=== PATIENT | male | born 1965 | race Two or more races ===

== ENCOUNTER 2019-02-26 05:22 | Day surgery (SDC) | payer OTHER ==
[~2019-02-26] VITALS: Ht 180.3 cm; Wt 90.3 kg
[2019-02-26] VITALS (10 sets, daily range): BP systolic 98–129; BP diastolic 53–86
[2019-02-26] MEDS ORDERED: Acetaminophen 500mg (ES) tab ORAL PRN (06:00)
[2019-02-26] MEDS ORDERED: Clindamycin 600mg/D5W 50ml IV ONE (06:00)
[2019-02-26] MEDS ORDERED: oxyCONTIN 20mg tab ORAL ONE (06:00)
[2019-02-26] MEDS ORDERED: celeBREX 200mg Cap **SURGERY PATIENTS ONLY ORAL ONE (06:00)
[2019-02-26] MEDS ORDERED: XANAX2 MG ORAL (06:15)
[2019-02-26] MEDS ORDERED: PRILOSEC OTC20 MG ORAL (06:15)
[2019-02-26] MEDS ORDERED: LEVOTHYROXINE125 MCG ORAL (06:15)
[2019-02-26] MEDS ORDERED: Bupivacaine w/Epi 0.5% 30ml Vial INJ ONE (06:30)
[2019-02-26] MEDS ORDERED: Zemuron 50mg/5ml Inj IV ONE (06:30)
[2019-02-26] MEDS ORDERED: fentaNYL 100 mcg/2 mL IV ONE ×2 (06:47→08:51)
[2019-02-26] MEDS ORDERED: Midazolam 2mg/2ml Inj ONE (06:48)
[2019-02-26] MEDS ORDERED: LR 1000ml ONE (07:00)
[2019-02-26] MEDS ORDERED: NS Irrig 4000ml IRRIG ONE (07:00)
[2019-02-26] MEDS ORDERED: Clindamycin 600mg 50 ML IV ONE (07:10)
--- NOTE | 2019-02-26 07:12 | Pre-Procedure Note/Attestation ---
Pre-Procedure Note/Attestation Complete Prior to Procedure Planned Procedure: right Procedure Narrative: shoulder Scope, labral repair, decompression of cyst, SAD Indications for Procedure Pre-Operative Diagnosis: Right shoulder labral tear Attestation I attest that I discussed the nature of the procedure; its benefits; risks and complications; and alternatives (and the risks and benefits of such alternatives ), prior to the procedure, with the patient (or the patient's legal office services representative). I attest that, if there was a reasonable possibility of needing a blood transfusion, the patient (or the patient's legal office services representative) was given the [facility] standardized written summary, pursuant to the [place] Blood Safety Act ([place] Health and Safety Code # 1645, as amended). I attest that I re-evaluated the patient just prior to the surgery and that there has been no change in the patient's H&P, except as documented below: Anderson Aguilera MD Feb 26, 2019 07:12
--- NOTE | 2019-02-26 07:49 | Anethesia Preoperative Eval ---
Anesthesia Pre-op PMH/ROS General Date of Evaluation: Feb 26, 2019 Time of Evaluation: 07:00 Anesthesiologist: tiana ASA Score: ASA 2 Mallampati Score Class I : Soft palate, uvula, fauces, pillars visible Class II: Soft palate, uvula, fauces visible Class III: Soft palate, base of uvula visible Class IV: Only hard plate visible Mallampati Classification: Class II Surgeon: Ale Diagnosis: shoulder pain Surgical Procedure: shoulder decompression Anesthesia History: none Social History: smoking, current smoker Family History: no anesthesia problems Allergies: Coded Allergies: PENICILLINS (Verified Allergy, Unknown, 02/26/19) HIVES Medications: see eMAR Patient NPO?: Yes NPO Date: Feb 26, 2019 NPO Time: 00:01 Past Medical History Cardiovascular: Denies: HTN, CAD, OR, valve dz, arrhythmia, other Pulmonary: Denies: asthma, COPD, KAREN, other Gastrointestinal/Genitourinary: Denies: GERD, CRI, ESRD, other Neurologic/Psychiatric: Denies: dementia, CVA, depression/anxiety, TIA, other Endocrine: Reports: hypothyroidism; Denies: DM, steroids, other HEENT: Denies: cataract (L), cataract (R), glaucoma, INAJA (L), INAJA (R), other Musculoskeletal/Integumentary: Denies: OA, RA, DJD, DDD, edema, other Other: obesity PSxH Narrative: gastric sleeve Anesthesia Pre-op Phys. Exam Physician Exam Last Vital Signs Date Time Temp Pulse Resp B/P (MAP) Pulse Ox O2 Delivery O2 Flow Rate FiO2 02/26/19 06:20 98.2 53 20 129/86 98 Room Air Constitutional: NAD Neurologic: CN 2-12 intact Cardiovascular: RRR Respiratory: CTA Gastrointestinal: S/NT/ND Airway Exam Mallampati Classification 2 Mallampati Score: Class II MO: full Neck: nomral ROM: full Dentures: no upper, no lower Anesthesia Pre-op A/P Studies Pre-op Studies: EKG - sr Risk Assessment & Plan Plan: Peripheral nerve block and General Status Change Before Surgery: No Pre-Antibiotics Drug: Cleocin Given Within 1 Hr of Incision: Yes Betty White CRNA Feb 26, 2019 07:49
[2019-02-26] MEDS ORDERED: Acetaminophen (Non formulary) 100 ML IV ONE (08:00)
[2019-02-26] MEDS ORDERED: fentaNYL 100 mcg/2 mL IV PRN (08:00)
[2019-02-26] MEDS ORDERED: Metoclopramide 10mg/2ml Inj IVP PRN (08:00)
[2019-02-26] MEDS ORDERED: Propofol 200mg/20ml IV ONE (08:01)
[2019-02-26] MEDS ORDERED: Lidocaine 1% MPF 10mg/ml 5ml ONE (08:48)
[2019-02-26] MEDS ORDERED: Neostigmine 1mg/ml 10ml Inj ONE (08:48)
[2019-02-26] MEDS ORDERED: Metoclopramide 10mg/2ml Inj ONE (08:48)
[2019-02-26] MEDS ORDERED: Glycopyrrolate 0.2mg/ml 1ml Vial ONE (08:48)
[2019-02-26] MEDS ORDERED: Ropivacaine 5mg/ml Vial 30ml INJ ONE (08:49)
--- NOTE | 2019-02-26 09:02 | Immediate Post-Op Evaluation ---
Immediate Post-Op Evalulation Immediate Post-Op Evalulation Procedure: right shoulder arthroscopy [place] Date of Evaluation: Feb 26, 2019 Time of Evaluation: 09:01 Nausea: No Vomiting: No Quoc Kelley MD Feb 26, 2019 09:01
--- NOTE | 2019-02-26 10:10 | 48 Hour Post Anesthesia Eval ---
Post Anesthesia Evaluation Procedure: right shoulder arthroscopy [place] Date of Evaluation: Feb 26, 2019 Time of Evaluation: 10:10 Nausea: No Vomiting: No Quoc Kelley MD Feb 26, 2019 10:10
--- NOTE | 2019-02-26 10:47 | Brief Operative Note ---
Immediate Post Operative Note Operative Note Pre-op Diagnosis: Right shoulder labral tear Procedure: Right shoulder scope, posterior labral repair, SAD, resection of cyst, [place] Post-op Diagnosis: same as pre-op Surgeon: clay Anesthesiologist: Davina Anesthesia: general Specimen: none Complications: none Condition: stable Fluids: 100cc Estimated Blood Loss: minimal Drains: none Implant(s) used?: Yes - biomet anchors Anderson Aguilera MD Feb 26, 2019 10:47
--- NOTE | 2019-02-26 13:45 | Operative Note - Dictated ---
DATE OF OPERATION: 02/26/2019 PREOPERATIVE DIAGNOSES: 1. Right shoulder superior as well as posterior labral tear. 2. Right shoulder impingement. 3. Right shoulder articular-sided rotator cuff tear. POSTOPERATIVE DIAGNOSES: 1. Right shoulder large posterior and posterior superior labral tear extending from the 9 o'clock position all the way up to the 11:30 position with detachment. 2. Right shoulder superior posterior paralabral cyst. 3. Right shoulder subacromial impingement and severe bursitis. 4. Right shoulder bone spur underneath the clavicle. 5. Right shoulder articular-sided rotator cuff tear involving 30% rotator cuff without full-thickness tear. PROCEDURE: 1. Right shoulder arthroscopy and extensive intra-articular shaving. 2. Right shoulder posterior and posterior superior labral repair using two Biomet 1.5 mm JuggerKnot anchors. 3. Right shoulder debridement articular-sided rotator cuff tear. 4. Right shoulder subacromial bursoscopy, bursectomy, subacromial decompression. 5. Right shoulder mini-Meghana procedure (resection of inferior 30% distended clavicle for coplaning). 6. Evaluation of rotator cuff on the bursal side with no evidence of rotator cuff tear. 7. Decompression of the posterior superior paralabral cyst at the spinoglenoid notch. SURGEON: Anderson Aguilera M.D. SAFETY INTERN: None. ANESTHESIOLOGIST: . ANESTHESIA: General LMA anesthesia. ESTIMATED BLOOD LOSS: Minimal. COMPLICATIONS: None. SURGICAL INDICATION: The patient is a 53-year-old male, who sustained the above injury to his shoulder. The patient was treated non-operative initially, but this did not alleviate the patients symptoms. Therefore, after discussing all non-surgical and surgical options, and discussing all foreseeable risk and benefits of surgery, the patient opted for surgical treatment as described above. PATIENT POSITIONING: The patient was brought to the operating room table and was placed on the operating room table. All pressure points were well padded. General anesthesia was induced and the patient was then placed in the lateral decubitus position. All pressure points were well padded again and an axillary roll was placed. The patient's shoulder was then prepped and draped in the usual sterile fashion. Time out was performed and the appropriate preoperative antibiotic was given by the anesthesiologist. EXAMINATION OF SHOULDER UNDER ANESTHESIA: The shoulder was examined under anesthesia with all muscles well relaxed. The shoulder was forward flexed, abducted, and was placed through full range of external and internal rotation. The anterior, posterior, and inferior stability of the shoulder was checked. The exam revealed no evidence of adhesive capsulitis and no evidence of instability. PORTAL PLACEMENT: The posterior portal was established 2 cm inferior and 1 cm medial to the edge of the posterior acromion. A 1 cm skin incision was made using an #11 blade and using the blunt obturator, the cannula was gently placed through the capsule. The midglenoid portal was established just lateral to the coracoid process under direct visualization. Direction of the cannula was first established using a spinal needle, and subsequently, the cannula was placed through the capsule with a blunt obturator. The anterior superior cannula was established under direct visualization off the anterior lateral edge of the acromion and just anterior to the biceps tendon through the rotator interval. The directional of cannula was first established using a spinal needle, and subsequently, the cannula was placed through the capsule with a blunt obturator. DIAGNOSTIC ARTHROSCOPY: The biceps tendon was probed and pulled through the joint for visualization. It appeared normal. The biceps anchor was palpated with a probe and was visualized. The posterior biceps anchor was detached. There was a tear of the labrum that extended all the way back to the 9 o'clock position of the labrum. The posterior labrum and axillary recess was visualized. This was normal and there was no evidence of loose cartilage or fragments in this area. The glenoid articular surface was visualized and it appeared normal. The articular surface of the rotator cuff was visualized and probed next. There was a 30% articular-sided rotator cuff tear without full-thickness tear. The humeral head articular surface was then visualized. There was no evidence of articular cartilage damage. Next, the anterior labrum, middle glenohumeral ligament, subscapularis tendon, and the anterior inferior glenohumeral ligament were evaluated. These structures were completely normal. At this point, the scope was moved to the midglenoid portal and the posterior structures including the posterior labrum, posterior capsule and posterior cuff were visualized. There was a large posterior labral tearing from [address] way up to 11:30 position just behind the biceps tendon. The subscapularis recess was devoid of any loose bodies and the anterior capsule was well attached to the humeral neck. The middle and anterior inferior glenohumeral ligament was visualized. These structures were completely normal. OPERATIVE DEBRIDEMENTS AND REPAIR: Care was given to all partial thickness tears and frayed structures in the shoulder joint. The frayed rotator cuff and labrum was debrided using a shaver initially through the anterior portal and subsequently through the posterior portal to complete the debridement. This allowed for smooth debridement of all affected structures and all loose fragments were removed. At this point, care was given to the labral tear through the labrum was debrided right next to the glenoid. The debridement went more superiorly and medially, a paralabral cyst was decompressed in this area. The cyst cavity was visualized. The spinoglenoid notch was decompressed in this fashion. At this point, the glenoid was debrided to a bleeding bone. Two 1.5 mm JuggerKnot anchors were placed in to the anterior superior cannula and using passing instruments, one suture was passed right behind the biceps tendon and second one was passed at the 10 o'clock position. These were tied with using SMC knots with three half hitches and this provided excellent stability of the labrum posterior superiorly. was decompressed. The scope was placed in the anterior portal and the posterior structures were visualized and again there was excellent stability. There was no further instability of the labrum. DIAGNOSTIC BURSOSCOPY AND SUBACROMIAL DECOMPRESSION: The subacromial bursa was entered from the posterior portal. The anterior portal was established under the CA ligament using a switching stick. Subacromial arthroscopy was initiated. There was extensive bursitis and thickened and inflamed bursa tissue present. The CA ligament appeared to be scuffed and frayed. The shaver was placed through the anterior cannula and debridement of the hypertrophic bursa tissue was accomplished. Once visualization was adequate, a lateral portal was established using a blunt trochar in the mid portion of the acromion bone in the anterior-posterior direction and approximately 2 cm lateral to the lateral edge of the acromion. Using combination of shaver and electrocautery the CA ligament was released from the undersurface of the acromion and a complete bursectomy was accomplished. At this point, a subacromial decompression was performed using a rod initially taking off 5-8 mm of the anterolateral edge of the acromion from the lateral portal and viewing from the posterior portal. Then the lateral border of the undersurface of the acromion was decompressed to the same dept as the anterolateral edge. A posterior trough was then created in the acromion in line with the posterior edge of the clavicle. At this point, the scope was placed in the lateral portal and the subacromial decompression was performed from the posterior portal decompressing the undersurface of the acromion to dept of 5-8 mm. The decompression was performed anterior to the previously marked trough all the way medially to the level of the AC joint. At all times, care was given not to take off too much bone in order to avoid risk of fracture of the acromion. An excellent subacromial decompression was performed in this fashion. At this point, the bursal side of the rotator cuff was examined. All the bursa over the rotator cuff was removed and the rotator cuff was examined with a probe. The arm was placed into external rotation, neutral, and then internal rotation and there was no evidence of tear of the rotator cuff. The scope was then placed in the posterior portal and the subacromial decompression was rechecked to assure there is no area of bone spur that would be still impinging onto the rotator cuff. EVALUATION OF DISTAL CLAVICLE AND DISTAL CLAVICLE RESECTION: Care was given to the distal end of the clavicle. Using electrocautery and brenda, the distal end of the bursa and soft tissue around the distal end of the clavicle was debrided and cleaned. Care was given not to inflict excessive trauma to the ligaments of the AC joint. The distal end of the clavicle appeared to have an inferior osteophyte extending down well bellow the level of the acromion at the level of the AC joint. This appeared to be impinging onto the supraspinatus muscle belly and the musculotendinous junction of the rotator cuff. A mini-Meghana procedure was performed by using a rod to resect the inferior 30% of the distal end of the clavicle. This decompression allowed space for the inferior structures to slide without impingement. This co-plained the inferior edge of the distal clavicle with the inferior edge of the acromion. CONDITION AT DISCHARGE FROM OPERATING ROOM: The skin was re-approximated and sterile dressing and sling were applied. All lap counts and instrument counts were correct. The patient tolerated the procedure well without complications and was taken to the recovery room in stable conditions. Anderson Aguilera M.D. DR: ROB JOB#: [id number] CC:
[2019-02-26] MEDS ORDERED: Tylenol #3 tab (300mg/30mg) ORAL PRN (16:01)
[2019-02-26] MEDS ORDERED: HYDROcodone/Acetamin 5/325 tab ORAL PRN (16:01)
[2019-02-26] MEDS ORDERED: D5 1/2NS 1,000 ML IV SCH (16:01)
[2019-02-26] MEDS ORDERED: HYDROmorphone 1mg/ml Carpuject SUBQ PRN (16:01)
== END 2019-02-26 11:30 | disposition home or self-care (01) ==
LOC: SUR 05:22
DX: S43.401A Unspecified sprain of right shoulder joint, initial encounter (principal); M75.41 Impingement syndrome of right shoulder; M75.111 Incomplete rotator cuff tear or rupture of right shoulder, not specified as traumatic; M77.9 Enthesopathy, unspecified; M71.9 Bursopathy, unspecified; S43.431A Superior glenoid labrum lesion of right shoulder, initial encounter; X58.XXXA Exposure to other specified factors, initial encounter; Y92.9 Unspecified place or not applicable; F17.200 Nicotine dependence, unspecified, uncomplicated; Z88.0 Allergy status to penicillin; E03.9 Hypothyroidism, unspecified; E66.9 Obesity, unspecified; Z98.84 Bariatric surgery status; K21.9 Gastro-esophageal reflux disease without esophagitis; F41.9 Anxiety disorder, unspecified
CPT/HCPCS: 29807; 29823; 29824; J2250; J2405; J2704; J2710; J2765; J2795; J3010; 94003; 94150; C1713; S0077